=== PATIENT | female | born 1940 | race Two or more races ===

== ENCOUNTER 2018-03-10 06:33 | Day surgery (SDC) | payer OTHER ==
[~2018-03-10] VITALS: Ht 165.1 cm; Wt 111.1 kg
[~2018-03-10 06:33] MED LIST: CALCIUM 500 +1 EAC2 PO; PROTONIX40 MG PO; SINGULAIR10 MG PO; VALSARTAN-HCTZ1 EAC1 PO; ZANTAC300 MG PO; ZYRTEC10 MG PO
[2018-03-11] MEDS ORDERED: GAS RELIEF125 M1 PO (08:34)
[2018-03-11] MEDS ORDERED: ULTRACET PO (08:35)
== END 2018-03-11 09:00 | disposition home or self-care (01) ==
LOC: CIR.AMB 06:33 → SURH 14:52 → O/R 14:52 → SURH 15:18 → CIR.AMB 03-11 09:00 → O/R 03-11 12:34 → SURH 03-11 12:34
DX: K80.10 Calculus of gallbladder with chronic cholecystitis without obstruction (principal); K42.9 Umbilical hernia without obstruction or gangrene

== ENCOUNTER 2019-01-29 07:24 | Day surgery (SDC) | payer OTHER ==
[~2019-01-29 07:24] MED LIST changes: +GAS RELIEF125 M1 PO; +ULTRACET PO
== END 2019-01-29 14:00 | disposition home or self-care (01) ==
LOC: AMB-ENDOS 07:24
DX: K50.10 Crohn's disease of large intestine without complications (principal); K42.9 Umbilical hernia without obstruction or gangrene; Z86.010 Personal history of colon polyps

== ENCOUNTER 2019-01-29 14:52 | Outpatient (CLI) | payer OTHER | END 2019-01-29 15:03 | disposition home or self-care (01) | LOC: TOM 14:52 | DX: K63.5 Polyp of colon (principal); Z86.010 Personal history of colon polyps ==

== ENCOUNTER 2019-08-31 13:06 | Outpatient (CLI) | payer OTHER | END 2019-08-31 13:18 | disposition home or self-care (01) | LOC: SONOGRAMA 13:06 | DX: N60.11 Diffuse cystic mastopathy of right breast (principal); N60.12 Diffuse cystic mastopathy of left breast; N63.11 Unspecified lump in the right breast, upper outer quadrant; N63.21 Unspecified lump in the left breast, upper outer quadrant ==

== ENCOUNTER 2019-12-04 06:46 | Day surgery (SDC) | payer OTHER ==
[~2019-12-04] VITALS: Ht 160 cm; Wt 108.0 kg
== END 2019-12-04 19:55 | disposition home or self-care (01) ==
LOC: CIR.AMB 06:46 → SURH 08:00 → EDSTATUS 09:00 → CIR.AMB 09:00 → SURH 09:00 → CIR.AMB 19:55
DX: D05.12 Intraductal carcinoma in situ of left breast (principal); D05.11 Intraductal carcinoma in situ of right breast; C77.3 Secondary and unspecified malignant neoplasm of axilla and upper limb lymph nodes